=== PATIENT | male | born 1965 | race African-American/Black ===

== ENCOUNTER 2021-09-08 23:56 | Emergency (ER) | payer OTHER ==
[~2021-09-08] VITALS: Ht 190.5 cm; Wt 76.7 kg
[2021-09-09] MEDS ORDERED: TETANUS-DIPTH-ACEL PERTUSSIS 0.5ML SYR Tdap IM ONE (00:30)
[2021-09-09] MEDS ORDERED: IOHEXOL 300 MG/ML 100ML BOTTLE IJ ONE (01:15)
[2021-09-09] MEDS ORDERED: MORPHINE SULFATE 4 MG/ML SYR/VIAL IV ONE (01:15)
[2021-09-09 03:13] LABS: Basophils # (auto) 0 10 ^3/uL (0-0.2); Basophils % (auto) 0.1 % (0.0-2.0); Eosinophils # (auto) 0 10 ^3/uL (0-0.8); Eosinophils % (auto) 0.1 % (0.0-7.0); Hemoglobin 13.6 g/dL (13.5-17.5); Monocytes # (auto) 0.8 10 ^3/uL (0-1.3); Neutrophils # (auto) 10.1 10 ^3/uL (1.6-8.6); Nucleated Red Blood Cells % 0.1 %; White Blood Cell 12.4 10^3/uL (4.4-10.8)
[2021-09-09 03:19] LABS: Hematocrit 40.3 % (41.0-53.0); Lymphocytes # (auto) 1.5 10 ^3/uL (0.4-5.4); Lymphocytes % (auto) 12.3 % (10.0-50.0); Mean Corpuscular Hemoglobin 30.6 pg (28.0-32.0); Mean Corpuscular Hgb Conc. 33.8 g/dL (32.0-36.0); Mean Corpuscular Volume 90.4 fL (80.0-100.0); Monocytes % (auto) 6.2 % (0.0-12.0); Neutrophils % (auto) 81.3 % (37.0-80.0); Red Blood Cells 4.46 10^6/uL (4.5-5.90); Red Cell Distribution Width 13.8 % (11.8-14.3)
[2021-09-09 03:20] LABS: INR 0.94 (0.9-1.15)
[2021-09-09 03:30] LABS: Albumin 3.7 g/dL (3.4-5.0); BUN/Creatinine Ratio 14.1
[2021-09-09 03:34] LABS: Bilirubin, Total 0.5 mg/dL (0.2-1.0); Total Protein 7.2 g/dL (6.4-8.2)
[2021-09-09] MEDS ORDERED: SODIUM CHLORIDE 0.9% 1,000 ML IV ONE (03:45)
[2021-09-09 04:03] LABS: Potassium 2.6 mmol/L (3.5-5.1)
[2021-09-09] MEDS ORDERED: POTASSIUM CHL 20MEQ/100ML 200 ML IV STA (04:05)
[2021-09-09] MEDS ORDERED: LACTATED RINGER'S 1,000 ML IV ONE (04:30)
[2021-09-09] MEDS ORDERED: POTASSIUM CHL 20 Meq TABLET PO ONE (04:45)
[2021-09-09 05:04] LABS: Magnesium 2.1 mg/dL (1.6-2.6)
[2021-09-09 10:26] LABS: Calcium 8.5 mg/dL (8.5-10.1); Potassium 3.3 mmol/L (3.5-5.1)
[2021-09-09 10:28] LABS: BUN/Creatinine Ratio 12.9
[2021-09-09] MEDS ORDERED: POTASSIUM EFFERVESENT TAB 25 MEQ PO ONE (10:45)
[2021-09-09 11:13] VITALS: BP 107/57
== END 2021-09-09 11:25 | disposition home or self-care (01) ==
LOC: ER 23:56 → EDBD 23:56 → ER 09-09 11:25
DX: S00.03XA Contusion of scalp, initial encounter (principal); S40.012A Contusion of left shoulder, initial encounter; S50.311A Abrasion of right elbow, initial encounter; E87.6 Hypokalemia; V89.2XXA Person injured in unspecified motor-vehicle accident, traffic, initial encounter; Y93.89 Activity, other specified; Y92.89 Other specified places as the place of occurrence of the external cause; Y99.8 Other external cause status
CPT/HCPCS: 36415; 70450; 71260; 72125; 73030; 73070; 73090; 74177; 80048; 80053; 80320; 83735; 84484; 85025; 85610; 90471; 90715; 93005; 96365; 96366; 96375; 99285; J2270; J3480; J7030; Q9967